=== PATIENT | male | born 1950 | race Caucasian/White ===

== ENCOUNTER 2017-06-30 07:38 | Inpatient (IN) | payer OTHER ==
[~2017-06-30] VITALS: Ht 175.3 cm; Wt 125.2 kg
--- NOTE | 2017-06-30 07:55 | NUR ---
PT PRESENTS TO ED STATING THAT HIS POTASSIUM LEVELS WERE LOW. PT INST TO COME TO ED FOR POTASSIUM REPLACEMENT. PT ASYMPTOMATIC AT THIS TIME. PT GOWNED PLACED ON FULL CM NO DISTRESS DR ANEDRSON AT BEDSIDE WILL MONITOR AWAITING FURTHER MD ORDERS
--- NOTE | 2017-06-30 08:09 | NUR ---
PORTABLE CXR AT BEDSIDE.
[2017-06-30 08:16] LABS: BASOPHIL % 0.3 % (0-2); PLATELET COUNT 136 x10^3mcL (130-400)
[2017-06-30 08:27] LABS: CALCIUM 7.2 mg/dL (8.5-10.1); CARBON DIOXIDE 35.3 mmol/L (21-32); CHLORIDE SERUM 97 mmol/L (98-107); CREATININE SERUM 1.1 mg/dL (0.7-1.3); GFR1 > 60 mL/min; GLUCOSE SERUM 112 mg/dL (74-106); SODIUM SERUM 138 mmol/L (136-145)
[2017-06-30 08:30] LABS: RED CELL DISTRIBUTION WIDTH 15.3 % (11.5-14.5)
[2017-06-30 08:32] LABS: POTASSIUM SERUM 2.4 mmol/L (3.5-5.1)
--- NOTE | 2017-06-30 08:47 | NUR ---
PT MEDICATED PER MD ORDERS SEE EMAR
--- NOTE | 2017-06-30 09:47 | NUR ---
PT SITTING IN BED IN NO DISTRESS ASYMPTOMATIC WILL CONTINUE TO MONITOR
--- NOTE | 2017-06-30 09:59 | NUR ---
POC DISCUSSED WITH PT BY DR ANDERSON. PT AGREES TO BE ADMITTED
[2017-06-30] MEDS ORDERED: ENALAPRIL MALEAT5 MG (10:00)
--- NOTE | 2017-06-30 10:05 | NUR ---
REPORT GIVEN TO KRIS DAVISON RESUMING CARE OF PT IN TELE FLOOR
--- NOTE | 2017-06-30 10:14 | NUR ---
PT TRANSPORTED TO TELE FLOOR VIA GURNEY ON PORTABLE CM NO DISTRESS BY MUKESH RN AND JUAN BRODERICK. KRIS DAVISON RESUMING CARE OF PT IN TELE FLOOR
--- NOTE | 2017-06-30 10:16 | NUR ---
LATE ENTRY: RECEIVED THE PATIENT FROM ER DEPT VIA GUERNEY; THE PATIENT AMBULATED TO THE BED FROM THE DOOR WITH SLOW GAIT. THE PATIENT ALERT AND ORIENTED TO PERSON, PLACE AND TIME. DENIED ANY PAIN, SHORTNESS OF BREATH OR NAUSEA/VOMITING. SL TO LEFT HAND. REORIENTED THE PATIENT TO ROOM AND EQUIPMENT. VS CHECKED. TELE # 31 ATTACHED TO THE PATIENT'S CHEST. ASSESSMENT WAS IMPLEMENTED. CALL LIGHT WITHIN REACH. SIDE RAILS UP X3. BED ALARM WAS ON.
[2017-06-30 10:33] VITALS: BP 127/73
[2017-06-30 10:50] LABS: T3 TOTAL 0.79 ng/mL
[2017-06-30 10:53] LABS: MAGNESIUM 1.2 mg/dL (1.8-2.4); PHOSPHOROUS 3.2 mg/dL (2.5-4.9)
[2017-06-30 10:57] LABS: CHOLESTEROL/HDL RATIO 4.5
[2017-06-30 11:00] LABS: FREE T4 2.13 ng/dL (0.76-1.46); FREE THYROXINE INDEX 3.4 ug/dL (1.4-4.5); T4(THYROXINE) 8.9 ug/dL (4.7-13.3)
[2017-06-30 11:30] LABS: microscopic required? NO
[2017-06-30 11:56] LABS: UA SPECIFIC GRAVITY 1.015 (1.005-1.035); urine erythrocyte NEGATIVE (NEGATIVE)
[2017-06-30 12:09] LABS: AMPHETAMINE QUAL UR NONE DETECTED (NEG <=1000)
[2017-06-30 13:59] VITALS: BP 118/66
--- NOTE | 2017-06-30 17:24 | NUR ---
THE PATIENT'S TEMP WAS 100.4; TYLENOL 650 MG PO WAS MEDICATED TO THE PATIENT, AND COOLING METHOD SET UP.
[2017-06-30 17:31] VITALS: BP 128/65
--- NOTE | 2017-06-30 18:25 | NUR ---
RECHECKED THE PATIENT'S TEMP WAS 99.2; THE PATIENT WAS RESTING IN BED WITHOUT DISTRESS NOTED. SEQUENTIAL STOCKINGS WERE IN PLACE TO BLE.
--- NOTE | 2017-06-30 19:39 | NUR ---
Awake and verbally responsive. No resp.distress noted. Denies pain at this time. IVF infusing. Will cont.to monitor. Call light within reach. Watching TV.
[2017-06-30 21:05] LABS: CALCIUM 7.2 mg/dL (8.5-10.1); CARBON DIOXIDE 35.1 mmol/L (21-32); CHLORIDE SERUM 96 mmol/L (98-107); CREATININE SERUM 1.1 mg/dL (0.7-1.3); GFR1 > 60 mL/min; GLUCOSE SERUM 130 mg/dL (74-106); MAGNESIUM 1.9 mg/dL (1.8-2.4); POTASSIUM SERUM 3.1 mmol/L (3.5-5.1); SODIUM SERUM 136 mmol/L (136-145)
[2017-07-01] VITALS: BP 107/76
--- NOTE | 2017-07-01 04:12 | NUR ---
Awake and sitting at the edge of the bed. Watching TV. No significant change in condition noted. Denies pain. In no apparent distress.
[2017-07-01 05:03] VITALS: BP 124/70
[2017-07-01 06:25] LABS: CALCIUM 7.3 mg/dL (8.5-10.1); CARBON DIOXIDE 34.8 mmol/L (21-32); CHLORIDE SERUM 97 mmol/L (98-107); CREATININE SERUM 0.9 mg/dL (0.7-1.3); GFR1 > 60 mL/min; GLUCOSE SERUM 102 mg/dL (74-106); MAGNESIUM 1.9 mg/dL (1.8-2.4); SODIUM SERUM 137 mmol/L (136-145)
[2017-07-01 06:28] LABS: POTASSIUM SERUM 2.7 mmol/L (3.5-5.1)
[2017-07-01 06:33] LABS: BASOPHIL % 0.6 % (0-2); PLATELET COUNT 146 x10^3mcL (130-400)
[2017-07-01 06:46] LABS: RED CELL DISTRIBUTION WIDTH 15.4 % (11.5-14.5)
--- NOTE | 2017-07-01 08:00 | NUR ---
ALERT AND ORIENTED. BREATHING FREELY ON RA. 02 SAT 88%. PT DID NOT WISH TO BE PLACED ON 02 NC. ENCOURAGED DEEP BREATHING UNTIL 02 SAT CAME UP TO 93%. ENCOURGED PT TO DEEP BREATH EVERY HOUR TO HELP BRING SATURATION TO NORMAL LIMITS. DENIES ANY PAIN. TELE # 31 ST HR 104. NS INFUSING 25 C HOUR. NOTED SCELERA RED. URINE APPEARS TO BE CONCENTRATED,DARK. ENCOURAGED PT TO DRINK MORE WATER. INDEPENDENT W ADL'S. GOOD APPETITE THIS AM. CALL LIGHT WITHIN REACH. USES URINAL, AT BEDSIDE. BED IN LOW POSITION. HOB ELEVATED TO FACILITATE BREATHING. WEARS YELLOW NON SKID SOCKS. LAST K+ 2.7 MAG 1.9.
[2017-07-01 10:14] VITALS: BP 109/65
[2017-07-01] MEDS ORDERED: POTASSIUM CHLO10 MEQ PO (12:46)
[2017-07-01] MEDS ORDERED: MAGNESIUM OXID400 MG PO (12:48)
[2017-07-01] MEDS ORDERED: ATIVAN0.5 M1 PO (12:55)
[2017-07-01 13:03] VITALS: BP 104/68
[2017-07-01 16:17] LABS: CALCIUM 7.5 mg/dL (8.5-10.1); CARBON DIOXIDE 34.7 mmol/L (21-32); CHLORIDE SERUM 99 mmol/L (98-107); CREATININE SERUM 0.9 mg/dL (0.7-1.3); GFR1 > 60 mL/min; GLUCOSE SERUM 118 mg/dL (74-106); POTASSIUM SERUM 3.3 mmol/L (3.5-5.1); SODIUM SERUM 137 mmol/L (136-145)
--- NOTE | 2017-07-01 16:33 | NUR ---
(RESIDENT) ASSIGNED TO THIS PT AWARE OF K-3.3 AND IN THE ROOM WITH PT RIGHT NOW AND EXPLAINING RESULT AND PLAN OF CARE. JAY RN ASSIGNED TO THIS PT MADE AWARE OF ABOVE.
[2017-07-01 16:45] VITALS: BP 104/68
[2017-07-01 16:50] VITALS: BP 107/73
--- NOTE | 2017-07-01 17:33 | NUR ---
DC'D TO HOME. TELE # 31 RETURNED TO TELE STATION. IV DC'D. RECEIVED MAG AND K+ RIDERS PRIOR TO DC. RECEIVED KCL 40 PO MEQ PRIOR TO DC. PRESCRIPTION FOR ATIVAN GIVEN. RX FOR K+ AND MAG CALLED TO [facility]. F/U GARRETT GIVEN WITH DR. ROBERT VENTURA. ALL DC INSTRUCTIONS REVIEWED WITH AND SIGNED BY PT. PT DROVE HIMSELF HOME.
[2017-07-02] MEDS ORDERED: HYZAAR1 TAB PO (20:40)
[2017-07-02] MEDS ORDERED: NOR5 PO (20:41)
== END 2017-07-01 17:33 | disposition home or self-care (01) | DRG 641 ==
LOC: ED 07:38 → DU 09:34
PROVIDERS: Emergency Medicine; ADMIT Family Medicine
DX: E87.6 Hypokalemia (principal); J98.11 Atelectasis; Z68.41 Body mass index [BMI] 40.0-44.9, adult; F10.10 Alcohol abuse, uncomplicated; E83.42 Hypomagnesemia; I10 Essential (primary) hypertension; E87.8 Other disorders of electrolyte and fluid balance, not elsewhere classified; E83.39 Other disorders of phosphorus metabolism; E66.01 Morbid (severe) obesity due to excess calories; R74.0 Nonspecific elevation of levels of transaminase and lactic acid dehydrogenase [LDH]
CPT/HCPCS: 83880; 84439; G0480; J2060; J3475; J3480; J7030; Q0092

== ENCOUNTER 2017-07-02 14:58 | Observation (INO) | payer OTHER ==
[~2017-07-02] VITALS: Ht 175.3 cm; Wt 129.7 kg
[~2017-07-02 14:58] MED LIST: ATIVAN0.5 M1 PO; ENALAPRIL MALEAT5 MG; MAGNESIUM OXID400 MG PO; POTASSIUM CHLO10 MEQ PO
[2017-07-02 16:00] LABS: BASOPHIL % 0.5 % (0-2); PLATELET COUNT 179 x10^3mcL (130-400)
[2017-07-02 16:01] LABS: RED CELL DISTRIBUTION WIDTH 15.3 % (11.5-14.5)
[2017-07-02 16:08] LABS: CALCIUM 7.9 mg/dL (8.5-10.1); CARBON DIOXIDE 30.9 mmol/L (21-32); CHLORIDE SERUM 97 mmol/L (98-107); CREATININE SERUM 0.9 mg/dL (0.7-1.3); GFR1 > 60 mL/min; GLUCOSE SERUM 112 mg/dL (74-106); POTASSIUM SERUM 3.3 mmol/L (3.5-5.1); SODIUM SERUM 138 mmol/L (136-145)
[2017-07-02 16:14] LABS: ALKALINE PHOSPHATASE 87 U/L (46-116); ALT/SGPT 34 U/L (16-63); AST/SGOT 93 U/L (15-37); BILIRUBIN TOTAL 2.43 mg/dL (0.20-1.00); PHOSPHOROUS 1.6 mg/dL (2.5-4.9); TOTAL PROTEIN, SERUM 7.2 g/dL (6.4-8.2); URIC ACID 6.1 mg/dL (3.5-7.2)
[2017-07-02 16:17] LABS: ALBUMIN 2.6 g/dL (3.4-5.0); CHOLESTEROL 92 mg/dL (<200); HDL CHOLESTEROL 21 mg/dL (40-60)
[2017-07-02 19:13] LABS: MAGNESIUM 1.5 mg/dL (1.8-2.4)
[2017-07-02 19:24] LABS: T3 TOTAL 1.04 ng/mL
[2017-07-02 19:27] LABS: FREE T4 2.2 ng/dL (0.76-1.46); FREE THYROXINE INDEX 4.2 ug/dL (1.4-4.5); T4(THYROXINE) 9.7 ug/dL (4.7-13.3)
[2017-07-02 19:44] VITALS: BP 122/56
[2017-07-02] MEDS ORDERED: HYZAAR1 TAB PO (20:40)
[2017-07-02] MEDS ORDERED: NOR5 PO (20:41)
[2017-07-02 22:46] VITALS: BP 126/76
[2017-07-03 05:42] VITALS: BP 139/71
[2017-07-03 09:26] LABS: CALCIUM 7.5 mg/dL (8.5-10.1); CARBON DIOXIDE 32.4 mmol/L (21-32); CHLORIDE SERUM 101 mmol/L (98-107); CREATININE SERUM 0.7 mg/dL (0.7-1.3); GFR1 > 60 mL/min; GLUCOSE SERUM 96 mg/dL (74-106); MAGNESIUM 1.5 mg/dL (1.8-2.4); PHOSPHOROUS 2.8 mg/dL (2.5-4.9); POTASSIUM SERUM 3.6 mmol/L (3.5-5.1); SODIUM SERUM 138 mmol/L (136-145)
[2017-07-03 09:39] VITALS: BP 136/87
[2017-07-03 13:55] VITALS: BP 106/58
[2017-07-03 15:16] LABS: microscopic required? NO
[2017-07-03 15:22] LABS: UA SPECIFIC GRAVITY 1.015 (1.005-1.035); urine erythrocyte NEGATIVE (NEGATIVE)
[2017-07-03 17:10] VITALS: BP 134/63
[2017-07-03 21:17] VITALS: BP 135/88
[2017-07-04 06:04] VITALS: BP 138/69
[2017-07-04 06:12] LABS: BASOPHIL % 0.4 % (0-2); PLATELET COUNT 179 x10^3mcL (130-400)
[2017-07-04 06:33] LABS: CALCIUM 7.8 mg/dL (8.5-10.1); CARBON DIOXIDE 32.8 mmol/L (21-32); CHLORIDE SERUM 102 mmol/L (98-107); CREATININE SERUM 0.7 mg/dL (0.7-1.3); GFR1 > 60 mL/min; GLUCOSE SERUM 105 mg/dL (74-106); MAGNESIUM 1.5 mg/dL (1.8-2.4); PHOSPHOROUS 2.5 mg/dL (2.5-4.9); POTASSIUM SERUM 3.4 mmol/L (3.5-5.1); SODIUM SERUM 139 mmol/L (136-145)
[2017-07-04 06:44] LABS: RED CELL DISTRIBUTION WIDTH 15.6 % (11.5-14.5)
[2017-07-04 08:45] VITALS: BP 132/83
[2017-07-04 12:20] VITALS: BP 141/78
[2017-07-04 16:23] VITALS: BP 123/83
[2017-07-04] MEDS ORDERED: APAP/HYDROCODON1 T13 PO (17:29)
[2017-07-04] MEDS ORDERED: THI100 PO (17:30)
[2017-07-04] MEDS ORDERED: FOL1 PO (17:30)
[2017-07-04] MEDS ORDERED: ATIVAN0.5 M1 PO ×2 (17:32→17:39)
[2017-07-04] MEDS ORDERED: MULTI-VITAMINS1 TAB PO (17:39)
[2017-07-04] MEDS ORDERED: LACTULOSE10 GM/152 PO (17:41)
[2017-07-04] MEDS ORDERED: ATI1 PO (17:47)
[2017-07-04 18:34] VITALS: BP 123/83
== END 2017-07-04 20:04 | disposition home or self-care (01) | DRG 917 ==
LOC: ED 14:58 → DU 17:56
PROVIDERS: Emergency Medicine; ADMIT Family Medicine
DX: T51.0X1A Toxic effect of ethanol, accidental (unintentional), initial encounter (principal); G92 Toxic encephalopathy; E43 Unspecified severe protein-calorie malnutrition; F10.231 Alcohol dependence with withdrawal delirium; L97.819 Non-pressure chronic ulcer of other part of right lower leg with unspecified severity; L97.829 Non-pressure chronic ulcer of other part of left lower leg with unspecified severity; Z68.42 Body mass index [BMI] 45.0-49.9, adult; I83.018 Varicose veins of right lower extremity with ulcer other part of lower leg; I83.028 Varicose veins of left lower extremity with ulcer other part of lower leg; E87.6 Hypokalemia; E83.39 Other disorders of phosphorus metabolism; E83.42 Hypomagnesemia; D75.89 Other specified diseases of blood and blood-forming organs; E66.01 Morbid (severe) obesity due to excess calories; Z87.891 Personal history of nicotine dependence; Z91.81 History of falling; Y90.6 Blood alcohol level of 120-199 mg/100 ml; Y92.009 Unspecified place in unspecified non-institutional (private) residence as the place of occurrence of the external cause
CPT/HCPCS: 83880; 84439; 97530-GP; G0378; G0480; J1885; J2270; J3475; J7030; Q0092

== ENCOUNTER 2017-08-08 14:56 | Emergency (ER) | payer OTHER ==
[~2017-08-08] VITALS: Ht 175.3 cm; Wt 99.8 kg
[~2017-08-08 14:56] MED LIST changes: +APAP/HYDROCODON1 T13 PO; +ATI1 PO; +FOL1 PO; +HYZAAR1 TAB PO; +LACTULOSE10 GM/152 PO; +MULTI-VITAMINS1 TAB PO; +NOR5 PO; +THI100 PO
[2017-08-08 15:46] LABS: BASOPHIL % 0.6 % (0-2); PLATELET COUNT 210 x10^3mcL (130-400); RED CELL DISTRIBUTION WIDTH 14.1 % (11.5-14.5)
[2017-08-08 15:54] LABS: CALCIUM 8.5 mg/dL (8.5-10.1); CARBON DIOXIDE 32.3 mmol/L (21-32); CHLORIDE SERUM 104 mmol/L (98-107); CREATININE SERUM 0.9 mg/dL (0.7-1.3); GFR1 > 60 mL/min; GLUCOSE SERUM 123 mg/dL (74-106); POTASSIUM SERUM 3.3 mmol/L (3.5-5.1); SODIUM SERUM 142 mmol/L (136-145)
[2017-08-08 16:04] LABS: ALKALINE PHOSPHATASE 108 U/L (46-116); ALT/SGPT 40 U/L (16-63); AST/SGOT 59 U/L (15-37); BILIRUBIN TOTAL 0.94 mg/dL (0.20-1.00); CHOLESTEROL 142 mg/dL (<200); LIPASE 134 IU/L (73-393); TOTAL PROTEIN, SERUM 7.6 g/dL (6.4-8.2); TRIGLYCERIDES 78 mg/dL (<150)
[2017-08-08 16:06] LABS: ALBUMIN 2.9 g/dL (3.4-5.0); CHOLESTEROL/HDL RATIO 2.3; HDL CHOLESTEROL 62 mg/dL (40-60)
[2017-08-08 16:15] LABS: T3 TOTAL 0.79 ng/mL
[2017-08-08 16:24] LABS: UA SPECIFIC GRAVITY <=1.005 (1.005-1.035); microscopic required? YES; urine erythrocyte TRACE (NEGATIVE)
[2017-08-08 16:45] LABS: FREE T4 1.43 ng/dL (0.76-1.46); FREE THYROXINE INDEX 2.8 ug/dL (1.4-4.5); T4(THYROXINE) 7.7 ug/dL (4.7-13.3)
[2017-08-08 18:17] VITALS: BP 140/64
== END 2017-08-08 18:18 | disposition home or self-care (01) ==
LOC: ED 14:56
PROVIDERS: Specialist
DX: F10.229 Alcohol dependence with intoxication, unspecified (principal)
CPT/HCPCS: 83880; 84439; G0480; J3490